=== PATIENT | male | born 1945 | race Caucasian/White ===

== ENCOUNTER 2020-10-01 11:04 | Emergency (ER) | payer MEDICARE, OTHER ==
[2020-10-01 11:31] LABS: HEMOGLOBIN 14.7 gm/dl (14.0-17.5); RED BLOOD COUNT 4.73 M/UL (4.20-5.50); WHITE BLOOD COUNT 8.2 K/UL (4.5-11.0)
[2020-10-01 11:55] LABS: BUN/CREATININE RATIO 10 (0-10)
[2020-11-22] MEDS ORDERED: ASPIRIN81 MG PO (09:38)
[2020-11-22] MEDS ORDERED: TAMSULOSIN HCL0.4 MG PO (09:39)
[2020-11-22] MEDS ORDERED: BACLOFEN10 MG PO (09:39)
[2020-11-22] MEDS ORDERED: PRAVASTATIN SOD20 MG PO (09:39)
[2020-11-22] MEDS ORDERED: CLARITIN 10MG T10 MG PO (09:40)
[2020-11-22] MEDS ORDERED: DOCUSATE SODIU250 MG PO (09:40)
[2020-11-22] MEDS ORDERED: OMEPRAZOLE40 MG PO (09:40)
[2020-11-22] MEDS ORDERED: FEROSUL325 MG PO (09:41)
[2020-11-22] MEDS ORDERED: VITAMIN D310 MC1 PO (09:43)
[2020-11-22] MEDS ORDERED: CITALOPRAM HBR10 MG PO (09:44)
[2020-11-22] MEDS ORDERED: ACID GONE ANTA355 ML PO (09:44)
[2020-11-22] MEDS ORDERED: PROSCAR 5 MG TAB5 MG PO (09:44)
[2020-11-22] MEDS ORDERED: ONDANSETRON ODT4 MG PO (09:45)
[2020-11-22] MEDS ORDERED: PROPRANOLOL HCL40 MG PO (09:46)
[2020-11-22] MEDS ORDERED: MASOPHEN500 MG PO (09:46)
== END 2020-10-01 16:00 ==
LOC: EDBD 11:04 → ER1 11:04
PROVIDERS: Physician Assistant
DX: R07.9 Chest pain, unspecified (principal); I10 Essential (primary) hypertension; K21.9 Gastro-esophageal reflux disease without esophagitis; D64.9 Anemia, unspecified
CPT/HCPCS: 71045; 80053; 82550; 82553; 83874; 84484; 85025; 93005; 99285

== ENCOUNTER → 2020-11-22 | Day surgery (SDC) | payer MEDICARE, OTHER ==
[~2020-11-22] MED LIST: ACID GONE ANTA355 ML PO; ASPIRIN81 MG PO; BACLOFEN10 MG PO; CITALOPRAM HBR10 MG PO; CLARITIN 10MG T10 MG PO; DOCUSATE SODIU250 MG PO; FEROSUL325 MG PO; MASOPHEN500 MG PO; OMEPRAZOLE40 MG PO; ONDANSETRON ODT4 MG PO; PRAVASTATIN SOD20 MG PO; PROPRANOLOL HCL40 MG PO; PROSCAR 5 MG TAB5 MG PO; TAMSULOSIN HCL0.4 MG PO; VITAMIN D310 MC1 PO
== END | disposition home or self-care (01) ==
LOC: OR 08:24
DX: K22.70 Barrett's esophagus without dysplasia (principal); K21.00 Gastro-esophageal reflux disease with esophagitis, without bleeding; K29.71 Gastritis, unspecified, with bleeding; K44.9 Diaphragmatic hernia without obstruction or gangrene; K22.4 Dyskinesia of esophagus; G80.9 Cerebral palsy, unspecified; E66.3 Overweight; Z68.29 Body mass index [BMI] 29.0-29.9, adult; Z79.82 Long term (current) use of aspirin; Z79.899 Other long term (current) drug therapy
CPT/HCPCS: J2704; J7040

== ENCOUNTER 2020-12-29 17:46 | Emergency (ER) | payer MEDICARE, OTHER ==
[2020-12-29 20:07] LABS: HEMOGLOBIN 14.2 gm/dl (14.0-17.5); RED BLOOD COUNT 4.66 M/UL (4.20-5.50); WHITE BLOOD COUNT 7.4 K/UL (4.5-11.0)
[2020-12-29 20:29] LABS: BUN/CREATININE RATIO 12 (0-10)
== END 2020-12-30 01:48 | disposition home or self-care (01) ==
LOC: ER1 17:46
PROVIDERS: Family Medicine
DX: R07.9 Chest pain, unspecified (principal); G80.9 Cerebral palsy, unspecified; K21.9 Gastro-esophageal reflux disease without esophagitis
CPT/HCPCS: 71045; 80053; 82550; 82553; 83874; 84484; 85025; 85379; 93005; 96374; 99285; J2405